=== PATIENT | male | born 1995 | race Caucasian/White ===

== ENCOUNTER 2021-01-14 19:11 | Emergency (ER) | payer OTHER, SELFPAY ==
[2021-01-14 20:46] VITALS: BP 170/104; PULSE 113; RESP 18; TEMP 37.1; O2SAT 99; BMI 34.8
[2021-01-14 22:05] VITALS: BP 148/84; PULSE 101; RESP 18; O2SAT 97
--- NOTE | 2021-01-14 23:54 | ED.SKABFB ---
HPI - Skin/Abscess/Foreign Bdy General Chief complaint: Skin/Abscess/Foreign Body Stated complaint: Cyst Time Seen by Provider: 01/14/21 23:30 Source: patient Mode of arrival: ambulatory Limitations: no limitations History of Present Illness HPI narrative: Patient comes emergency room complaining of a cyst on the upper part of the buttocks. Patient states he noticed it yesterday, states is very painful to touch. Patient has never had this before. Related Data Previous Rx's Medication Instructions Recorded cephalexin [Keflex] 750 mg PO BID #14 cap 01/15/21 doxycycline hyclate 100 mg PO BID #14 cap 01/15/21 tramadol 50 mg PO Q8H PRN #10 tab 01/15/21 Allergies Allergy/AdvReac Type Severity Reaction Status Date / Time No Known Allergies Allergy Verified 01/14/21 20:46 Review of Systems Review of Systems: Constitutional : No Weight loss, No Fever, No Chills, No Night Sweats, No Fatigue, No Malaise ENT/Mouth : No Hearing loss, No Ear Pain, No Nasal Congestion, No Sinus Pain, No Hoarseness, No sore throat, No Rhinorrhea, No Swallowing Difficulty Eyes: No Eye Pain, No Swelling, No Redness, No Foreign Body, No Discharge, No Vision Changes Cardiovascular : No Chest Pain, No SOB, No Dyspnea on Exertion, No Orthopnea, No Edema, No Palpitations Respiratory : No Cough, No Sputum, No Wheezing, No Smoke Exposure, No Dyspnea Gastrointestinal : No Nausea, No Vomiting, No Diarrhea, No Constipation, No abdominal Pain, No Hematochezia, No Melena Genitourinary : no irregular bleeding, No Dysuria, No Urinary Frequency, No Hematuria, No Urinary Incontinence, No Urgency, No Flank Pain, No Urinary Flow Changes, No Hesitancy Musculoskeletal : No joint pain, No Myalgias, No Joint Swelling Skin : Complaining of a cyst on the top part of his buttocks Neuro : No Weakness, No Numbness, No Paresthesias, No Loss of Consciousness, No Dizziness, No Headache Psych : No Anxiety/Panic, No Depression, No SI/HI/AH/VH, No Social Issues, Heme/Lymph: No Bruising, No Bleeding,No Lymphadenopathy Endocrine : No Polyuria, No Polydipsia, No Temperature Intolerance PMFSH Past Medical History Medical History HTN (hypertension) Social History Social History Smoking Status: Never smoker Use of substances other than those prescribed or required for medical reasons: Yes Advance Directives: No Physical Exam Vital Signs: Vital Signs: Last Vital Signs Temp 98.7 F 01/14/21 20:46 Pulse 97 01/15/21 00:00 Resp 16 01/15/21 00:00 BP 153/87 H 01/15/21 00:00 Pulse Ox 97 01/15/21 00:00 Body Mass Index 34.8 Appearance: Alert. Oriented X3. No acute distress. Eyes: Pupils equal, round and reactive to light. ENT: Pharynx normal. Neck: Normal inspection. Neck supple. No lymph nodes noted. No crepitus CVS: Normal heart rate and rhythm. Pulses normal. Normal S1 and S2 Respiratory: No respiratory distress. Breath sounds normal. No Wheezing. No rales Abdomen: Soft and nontender. No rigidity. No distention. good BS x4 Skin: Skin warm and dry. Normal skin color. Normal skin turgor. Patient has a pilonidal cyst, bedside ultrasound shows a depth of approximately 3 cm Extremities: No lower extremity edema. No lower extremity edema. No Lacerations. No Rash Neuro: Oriented X 3. No motor deficit. No sensory deficit. Moving all extermities. No slurred speech. Course Course Course Narrative: States the pilonidal cyst was drained, patient tolerated well the procedure. I discussed with the patient he needs to return to the emergency room for wound tracking couple of days. Patient may or may not need repacking. Procedures Abscess I/D Site: back (Lower back, pilonidal cyst) Local Anesthetic: lidocaine 1% and with epi Technique: incised with blade Amount of fluid expressed (mL): 30 Sent for culture/gram staining?: No Irrigation: Yes Packing used?: iodoform Discharge Plan Discharge Clinical Impression: Cyst, pilonidal, with abscess Patient Disposition: Home, Self-Care Instructions: Pilonidal Cyst (ED) Additional Instructions: Please return in 48 hours for wound check. If he develops any fever, any new symptoms, please return to the emergency room. Prescriptions: New tramadol 50 mg tablet 50 mg PO Q8H PRN (Reason: pain) Qty: 10 RF: 0 cephalexin [Keflex] 750 mg capsule 750 mg PO BID Qty: 14 RF: 0 doxycycline hyclate 100 mg capsule 100 mg PO BID Qty: 14 RF: 0
[2021-01-14] MEDS: Lidocaine HCl 1%/Epi 1:100,000 20 ML VIAL INFILTRATI (23:55)
[2021-01-15] VITALS: BP 153/87; PULSE 97; RESP 16; O2SAT 97
[2021-01-15] MEDS: oxyCODONE HCl Immed Release 5 MG TABLET PO (00:46)
== END 2021-01-15 01:14 | disposition home or self-care (01) ==
PROVIDERS: Emergency Provider Emergency Medicine
DX: L05.91 Pilonidal cyst without abscess (principal); M54.5 Low back pain; I10 Essential (primary) hypertension
CPT/HCPCS: 10080; 99284

== ENCOUNTER 2021-01-16 09:38 | Emergency (ER) | payer OTHER, SELFPAY ==
[2021-01-16 09:39] VITALS: BP 158/106; PULSE 105; RESP 18; TEMP 36.8; O2SAT 98; BMI 31.4
--- NOTE | 2021-01-16 10:13 | ED_ITS ---
HPI - Wound/Laceration General Chief Complaint: Wound/Laceration Stated Complaint: wound check Time Seen by Provider: 01/16/21 10:01 Source: patient Mode of arrival: ambulatory History of Present Illness HPI narrative: 25-year-old male with a past medical history of hypertension, pilonidal cyst s/p I&D on 01/14 in the ED to the ED for abscess check/packing removal. Reports overall improvement in symptoms with mild residual pain and slight residual drainage. Reports compliance with doxycycline and Keflex. Reports mild adjacent area of erythema/pain noted yesterday. Denies fever, chills Onset (ago): day(s) Related Data Previous Rx's Medication Instructions Recorded cephalexin [Keflex] 750 mg PO BID #14 cap 01/15/21 doxycycline hyclate 100 mg PO BID #14 cap 01/15/21 tramadol 50 mg PO Q8H PRN #10 tab 01/15/21 Allergies Allergy/AdvReac Type Severity Reaction Status Date / Time No Known Allergies Allergy Verified 01/14/21 20:46 Review of Systems Review of Systems: Constitutional: No Weight loss, No Fever, No Chills Gastrointestinal: No Abdominal pain Skin: + Skin Lesions, No rash Yes all other systems are reviewed and are negative PMFSH Past Medical History Attestation statement: The following information was validated with the patient. Medical History HTN (hypertension) Social History Social History Smoking Status: Never smoker Smoked in Last 30 Days: No Use of substances other than those prescribed or required for medical reasons: No Advance Directives: Yes Advance Directives Information Provided: Yes Advance Directives on File: No Physical Exam Vital Signs: Vital Signs: Last Vital Signs Temp 98.2 F 01/16/21 09:39 Pulse 105 H 01/16/21 09:39 Resp 18 01/16/21 09:39 BP 158/106 H 01/16/21 09:39 Pulse Ox 98 01/16/21 09:39 Body Mass Index 31.4 Const: General: cooperative, healthy appearing, comfortable and no acute distress Orientation/consciousness: patient oriented x3 Limitations: no limitations HENMT: Head: Yes normal to inspection Ears: hearing grossly normal bilaterally General nose exam: Normal external nose present Face and sinus: Yes normal facial exam Eyes: General: appearance normal, both eyes and all related structures EOM: EOMs intact bilaterally Neck: Neck: Yes normal visual inspection and Yes no meningeal signs Resp: Effort & Inspection: normal respiratory effort Cardio: Rate: regular rate : Other: Pilonidal cyst present with packing in place. No surrounding cellulitis. No fluctuance. Packing removed. New indurated abscess noted to left buttock with surrounding cellulitis. No fluctuance. No appreciable rectal involvement/tracking Skin: Rashes: no rashes Neuro: General: patient oriented x3 and no meningeal signs Gait exam (Neuro): Normal gait present Extrem: General: Yes normal to inspection MDM - Wound/Laceration MDM Narrative Medical decision making narrative: 25-year-old male with a past medical history of hypertension, pilonidal cyst s/p I&D on 01/14 in the ED to the ED for abscess check/packing removal. On exam mildly hypertensive/tachycardic likely from pain, physical exam as above. New indurated abscess with surrounding cellulitis noted not drainable at this time. Low concern for severe sepsis. Patient currently on proper antibiotic treatment, discussed strict follow-up in 2 days in worrisome signs and symptoms. Packing removed from pilonidal cyst. He erick carlin understanding feel safe for discharge home Medical Records Attestation: I reviewed the patient's medical records. Discharge Plan Discharge Clinical Impression: Abscess, Wound check, abscess Patient Disposition: Home, Self-Care Instructions: Abscess Follow-up (ED) Additional Instructions: The abscess that was drained in the ED few days ago looks good, however you have a new infection. Practice warm bath soaks at home. Continue taking previously prescribed antibiotics You need to be re-evaluated in 2 days If area worsens, spreads, you have fever, comes to a pimple head, has any drainage return to the ED sooner Prescriptions: No Action tramadol 50 mg tablet 50 mg PO Q8H PRN (Reason: pain) Qty: 10 RF: 0 cephalexin [Keflex] 750 mg capsule 750 mg PO BID Qty: 14 RF: 0 doxycycline hyclate 100 mg capsule 100 mg PO BID Qty: 14 RF: 0 Referrals: ED Physician,Generic [Physician] - 2 days Stand Alone Forms: Work/School Release
== END 2021-01-16 10:25 | disposition home or self-care (01) ==
PROVIDERS: Emergency Provider Emergency Medicine
DX: L05.91 Pilonidal cyst without abscess (principal); Z48.00 Encounter for change or removal of nonsurgical wound dressing; Z79.899 Other long term (current) drug therapy
CPT/HCPCS: 99283

== ENCOUNTER 2021-05-19 09:01 | Emergency (ER) | payer OTHER, SELFPAY ==
[2021-05-19 09:04] VITALS: BP 156/85; PULSE 111; RESP 18; TEMP 36.8; O2SAT 100; BMI 30.7
[2021-05-19 09:11] VITALS: BP 150/99; PULSE 113; RESP 17; TEMP 36.9; O2SAT 96
[2021-05-19] MEDS: Lidocaine HCl 1 % MPF 5 ML VIAL SUBCUT ×2 (09:34)
--- NOTE | 2021-05-19 10:12 | ED.SKABFB ---
HPI - Skin/Abscess/Foreign Bdy General Chief complaint: Skin/Abscess/Foreign Body Stated complaint: cyst on tailbone Time Seen by Provider: 05/19/21 09:23 History of Present Illness HPI narrative: patient complains of red painful swelling same as prior pilonidal abscess for the past 2 days no fever no other complaints Related Data Previous Rx's Medication Instructions Recorded cephalexin [Keflex] 750 mg PO BID #14 cap 01/15/21 doxycycline hyclate 100 mg PO BID #14 cap 01/15/21 tramadol 50 mg PO Q8H PRN #10 tab 01/15/21 ibuprofen 600 mg PO Q6H PRN #20 tab 05/19/21 sulfamethoxazole-trimethoprim 1 tab PO BID 7 Days #14 tab 05/19/21 [Bactrim DS] Allergies Allergy/AdvReac Type Severity Reaction Status Date / Time No Known Allergies Allergy Verified 01/14/21 20:46 Review of Systems Review of Systems: positive for pilonidal abscess Negatives are no fever no chills no dizziness no weakness no headache no neck pain no chest pain no cough no abdominal pain no nausea vomiting or diarrhea no dysuria Yes all other systems are reviewed and are negative PMFSH Past Medical History Source: nursing notes reviewed Medical History HTN (hypertension) Social History Social History Patient Tobacco Use Status: Never used Tobacco Use of substances other than those prescribed or required for medical reasons: No Advance Directives: Yes Advance Directives Information Provided: Yes Advance Directives on File: No Physical Exam Vital Signs: Vital Signs: Last Vital Signs Temp 98.5 F 05/19/21 09:11 Pulse 113 H 05/19/21 09:11 Resp 17 05/19/21 09:11 BP 150/99 H 05/19/21 09:11 Pulse Ox 96 05/19/21 09:11 Body Mass Index 30.7 general appearance is no distress The head is normocephalic atraumatic Neck is supple Respiratory no distress Abdomen soft nontender Skin exam at the gluteal cleft there is a new area of redness fluctuance and tenderness with no other surrounding erythema Extremities full range of motion x4 Course Course Course Narrative: procedure note for pilonidal abscess Anesthesia is 12 cc of 1% lidocaine 1 cm incision is made with discharge of copious pus Loculations are probed with forceps and more pus was drained Packing was placed and dressing was placed Discharge Plan Discharge Clinical Impression: Pilonidal abscess Patient Disposition: Home, Self-Care Additional Instructions: return to ER in 2 days for packing removal and wound check Return any time for worse pain swelling, spreading redness, fever, any worse condition or any concerns Because this is happen twice in a few months you may need to follow-up with a surgeon for a more complicatedprocedure that can eliminate the possibility of future abscesses Prescriptions: New sulfamethoxazole-trimethoprim [Bactrim DS] 800-160 mg tablet 1 tab PO BID 7 Days Qty: 14 RF: 0 ibuprofen 600 mg tablet 600 mg PO Q6H PRN (Reason: pain) Qty: 20 RF: 0 No Action tramadol 50 mg tablet 50 mg PO Q8H PRN (Reason: pain) Qty: 10 RF: 0 cephalexin [Keflex] 750 mg capsule 750 mg PO BID Qty: 14 RF: 0 doxycycline hyclate 100 mg capsule 100 mg PO BID Qty: 14 RF: 0 Referrals: Perfecto Ortega MD [Physician] - 2 days ( repeated pilonidal abscess)
== END 2021-05-19 10:25 | disposition home or self-care (01) ==
PROVIDERS: Emergency Provider Emergency Medicine
DX: L05.01 Pilonidal cyst with abscess (principal); I10 Essential (primary) hypertension
CPT/HCPCS: 10080; 99284

== ENCOUNTER 2023-12-14 19:47 | Emergency (ER) | payer OTHER, SELFPAY ==
--- NOTE | ~2023-12-14 | XR_ITS ---
EXAMINATION: XR RIBS, LEFT WITH PA CHEST CLINICAL INFORMATION: Posterior right rib pain. COMPARISON: None available. TECHNIQUE: 3 views of the left ribs were obtained, together with a PA view of the chest. FINDINGS: Lungs are clear. No consolidation, pneumothorax, or pleural effusion. The cardiomediastinal silhouette and pulmonary vasculature are normal. Osseous structures are unremarkable. Ribs are intact. No fractures are identified. XR/XR ribs LT min 3V w CXR1V IMPRESSION: Unremarkable examination.
--- NOTE | ~2023-12-14 | XR_ITS ---
EXAMINATION: XR FOREARM, RIGHT CLINICAL INFORMATION: Pain. COMPARISON: None available. TECHNIQUE: AP and lateral views of the right forearm were obtained. FINDINGS: The bones and soft tissues are normal. No fracture. Imaged portions of the elbow and wrist are unremarkable. XR/XR forearm RT 2V IMPRESSION: Normal right forearm.
--- NOTE | ~2023-12-14 | XR_ITS ---
EXAMINATION: XR ELBOW, RIGHT CLINICAL INFORMATION: Pain. COMPARISON: None available. TECHNIQUE: AP, lateral, and oblique views of the right elbow. FINDINGS: The bones and soft tissues are normal. No fracture or joint effusion. Alignment is anatomic. Joint spaces are maintained. XR/XR elbow RT 2V IMPRESSION: Normal right elbow.
--- NOTE | ~2023-12-14 | XR_ITS ---
EXAMINATION: XR HUMERUS, LEFT CLINICAL INFORMATION: Left upper arm pain. COMPARISON: None available. TECHNIQUE: AP and lateral views of the left humerus. FINDINGS: The bones and soft tissues are normal. No fracture. Imaged portions of the shoulder and elbow are unremarkable. XR/XR humerus LT IMPRESSION: Normal left humerus.
[2023-12-14 20:17] VITALS: BP 158/109; PULSE 106; RESP 16; TEMP 36.6; O2SAT 98; BMI 38.8
--- NOTE | 2023-12-14 20:19 | ED.FALL ---
HPI - Fall General Chief Complaint: Fall Stated Complaint: fell down stairs ,bilateral elbow pain Time Seen by Provider: 12/14/23 23:33 Source: patient Mode of arrival: ambulatory History of Present Illness HPI Narrative: 28M fell down icy steps without head strike but has pain at medial/lateral aspect of right elbow. Denies LOC. Related Data Previous Rx's Medication Instructions Recorded cephalexin 750 mg capsule (Keflex) 750 mg PO BID #14 caps 01/15/21 doxycycline hyclate 100 mg capsule 100 mg PO BID #14 caps 01/15/21 tramadol 50 mg tablet 50 mg PO Q8H PRN pain #10 tabs 01/15/21 ibuprofen 600 mg tablet 600 mg PO Q6H PRN pain #20 tabs 05/19/21 sulfamethoxazole 800 1 tab PO BID 7 days #14 tabs 05/19/21 mg-trimethoprim 160 mg tablet (Bactrim DS) Allergies Allergy/AdvReac Type Severity Reaction Status Date / Time No Known Allergies Allergy Verified 01/14/21 20:46 Review of Systems Review of Systems: Pertinent positives and negatives as stated in HPI PMFSH Past Medical History Source: nursing notes reviewed Medical History HTN (hypertension) Social History Social History Patient Tobacco Use Status: Never used Tobacco Advance Directives: No Advance Directives Information Provided: No Physical Exam Vital Signs: Vital Signs: Last Vital Signs Temp 97.9 F 12/14/23 20:17 Pulse 106 H 12/14/23 20:17 Resp 16 12/14/23 20:17 BP 158/109 H 12/14/23 20:17 Pulse Ox 98 12/14/23 20:17 O2 Del Method Room Air 12/14/23 20:17 BMI result Body Mass Index 38.8 VITAL SIGNS: Reviewed. GENERAL: Well developed, well nourished, in no acute distress. HEAD: Normocephalic/atraumatic EYES: PERRLA, EOMI EARS: Ext canals without abnormality NOSE: Nares patent bilateral OROPHARYNX: no oral lesions noted, posterior pharynx clear NECK: Supple, no adenopathy, no midline cervical spine tenderness to palpation or step-offs. LUNGS: Normal breath sounds. No adventitious sounds or accessory muscle use. SpO2<98> CARDIOVASCULAR: Regular rate and rhythm without noted murmurs ABDOMEN: Soft, non-tender, non-distended with bowel sounds. MUSCULOSKELETAL: No tenderness, deformities, or effusions noted on gross inspection. EXTREMITIES: No cyanosis, clubbing or edema. LUE: Contusion to posterior medial aspect of upper arm RUE: no obvious deformity, fROM at all joints, neurovasc intact SKIN: Inspection of the skin reveals no rashes NEUROLOGIC: Alert and oriented x 4. Strength and sensation to light touch were grossly intact x 4. Course Course Course Narrative: RME:?28 yo male here with upper extremity pain after falling down 12 stairs outside his house 3 days ago. Reports slipping on ice, landing on his buttocks/low back and sliding all the way down the stairs. Denies head strike or LOC. Not on AC. Additionally admits that he tried to grab onto the railing with his right arm and feels as though he pulled a muscle in his right forearm. Endorses bruising to the tricep area of the left arm. Additionally reports pain/aching to the posterior left rib area. Was immediately able to stand and ambulate after fall. Denies any confusion, headache, dizziness, nausea since fall. Denies any abdominal bruising, back pain, neck pain. X-rays ordered. Full HPI, ROS and PE to be performed by the primary ED provider. Medical Decision Making Medical Decision Making MDM Narrative: 28-year-old male with history and clinical presentation most consistent for muscle strain, I reviewed all imaging studies that do not demonstrate any fractures or dislocations and no concern for biceps injury. Patient recommended to continue with Tylenol and ibuprofen follow-up with his primary care doctor. Differential Diagnosis Differential Diagnoses: The differential diagnosis associated with the presentation includes Please see the discussion above Admission/Observation Consideration of admission/observation: Escalation of care including admission/observation considered Please see the discussion above Radiology Impression Discussion of test interpretation with radiology: I have reviewed the radiologist's reading. Radiologist Impression: Please see the discussion above External Record Review External record reviewed: Outpatient record and Prior outpatient labs Discharge Plan Discharge Clinical Impression: Fall, Muscle strain Patient Disposition: Home, Self-Care Instructions: Muscle Strain (ED), Fall Prevention (ED) Additional Instructions: 1. Recommend continued use of Tylenol/ibuprofen as needed for pain control. 2. Recommend follow-up with your primary care doctor in the event that you need a referral for physical therapy or any further imaging. Return to the ER for any worsening symptoms. Prescriptions: No Action tramadol 50 mg tablet 50 mg PO Q8H PRN (Reason: pain) Qty: 10 0RF cephalexin [Keflex] 750 mg capsule 750 mg PO BID Qty: 14 0RF doxycycline hyclate 100 mg capsule 100 mg PO BID Qty: 14 0RF sulfamethoxazole-trimethoprim [Bactrim DS] 800-160 mg tablet 1 tab PO BID 7 Days Qty: 14 0RF ibuprofen 600 mg tablet 600 mg PO Q6H PRN (Reason: pain) Qty: 20 0RF
== END 2023-12-15 00:03 | disposition home or self-care (01) ==
PROVIDERS: Emergency Provider Student in an Organized Health Care Education/Training Program
DX: S46.811A Strain of other muscles, fascia and tendons at shoulder and upper arm level, right arm, initial encounter (principal); S39.92XA Unspecified injury of lower back, initial encounter; W00.1XXA Fall from stairs and steps due to ice and snow, initial encounter; Y93.89 Activity, other specified; Y92.9 Unspecified place or not applicable; Y99.9 Unspecified external cause status; M25.521 Pain in right elbow; R07.81 Pleurodynia; M79.602 Pain in left arm
CPT/HCPCS: 71101; 73060; 73070; 73090; 99282; 99283

== ENCOUNTER 2025-05-16 20:52 | Emergency (ER) | payer OTHER, SELFPAY ==
[2025-05-16 21:02] VITALS: BP 157/98; PULSE 91; RESP 18; TEMP 36.1; O2SAT 99; BMI 37.0
[2025-05-16 21:29] LABS: MANUAL DIFF FLAG NO
[2025-05-16 21:31] LABS: Hematocrit 39.8 % (42.0-52.0); Hemoglobin 14.1 g/dl (14.0-18.0); Imm Gran Abs Auto 0.02 X10*3/uL (0.00-0.03); Imm Gran Pct Auto 0.2 % (0.0-0.4); Lymphocytes Absolute Auto 3.7 X10*3/uL (1.2-4.9); Mean Corpuscular HGB Conc 35.4 g/dl (31.0-36.0); Mean Corpuscular Hemoglobin 29.4 pg (27.0-33.0); Mean Corpuscular Volume 83.1 fL (80.0-98.0); NRBC Abs Auto 0.000 X10*3/uL (0.0-0.012); NRBC Pct Auto 0.0 /100WBC (0.0-0.2); Platelet Count 267 X10*3/uL (160-400); Red Blood Count 4.79 X10*6/uL (4.60-5.80); White Blood Count 9.0 X10*3/uL (4.8-10.8)
[2025-05-16 21:43] LABS: Alanine Aminotransferase 78 U/L (0-40); Albumin Level 4.7 g/dL (3.5-5.0); Alkaline Phosphatase 49 U/L (39-117); Anion Gap 14 (12-20); Aspartate Amino Transferase 46 U/L (5-37); Blood Urea Nitrogen 14 mg/dL (9-16); Calcium 9.0 mg/dL (8.4-10.2); Carbon Dioxide 28 mmol/L (22-29); Chloride 103 mmol/L (96-108); Creatinine Clr Calc Pharmacy 115.9; Estimated Glomerular Filt Rate > 60; Potassium 3.6 mmol/L (3.3-5.1); Sodium 141 mmol/L (135-145); Total Protein 7.8 g/dL (6.5-8.0)
[2025-05-16 21:45] VITALS: BP 146/65; PULSE 88; RESP 16; TEMP 36.8; O2SAT 99
[2025-05-16 22:07] LABS: Resp Syncy Virus RNA Qual PCR NEGATIVE (Negative); SARS COV2 PCR INHOUSE NEGATIVE (Negative)
--- NOTE | 2025-05-16 23:08 | ED.GENADULT ---
HPI - General Adult General Chief complaint: General Medical Stated complaint: sinus infection? Time Seen by Provider: 05/16/25 22:42 Source: patient Mode of arrival: ambulatory Limitations: no limitations History of Present Illness ED Provider: HPI narrative: Patient has chronic allergies been having sinus congestion for last 4 weeks getting worse for last few days today patient was in [employer] and sudden noticed that he could not see from the right eye lasted only for few sec back to normal now no fever no chills no headache no history of migraine Related Data Previous Rx's ?Medication ?Instructions ?Recorded cephalexin 750 mg capsule (Keflex) 750 mg PO BID #14 caps 01/15/21 doxycycline hyclate 100 mg capsule 100 mg PO BID #14 caps 01/15/21 tramadol 50 mg tablet 50 mg PO Q8H PRN pain #10 tabs 01/15/21 ibuprofen 600 mg tablet 600 mg PO Q6H PRN pain #20 tabs 05/19/21 sulfamethoxazole 800 1 tab PO BID 7 days #14 tabs 05/19/21 mg-trimethoprim 160 mg tablet (Bactrim DS) amoxicillin 875 mg-potassium 1 tab PO BID #20 tabs 05/16/25 clavulanate 125 mg tablet Allergies Allergy/AdvReac Type Severity Reaction Status Date / Time No Known Allergies Allergy Verified 05/16/25 21:07 Review of Systems Review of Systems: Yes all other systems are reviewed and are negative PMFSH Past Medical History Medical History HTN (hypertension) Social History Social History Patient Tobacco Use Status: Never used Tobacco Smoked in Last 30 Days: No Use of substances other than those prescribed or required for medical reasons: No Advance Directives: No Advance Directives Information Provided: No Do you have a plan to hurt others: No Plan Physical Exam ED Vital Signs: Vital Signs - 24 hr 05/16/25 21:02 05/16/25 21:45 Temperature 97.0 F 98.3 F Pulse Rate 91 88 Respiratory Rate 18 16 Blood Pressure 157/98 H 146/65 H Pulse Oximetry 99 99 Oxygen Delivery Method Room Air Room Air BMI result Body Mass Index 37.0 Appearance: Alert. Oriented X3. No acute distress. Eyes: PERRLA, No Nystagmus benign fundus visual acuity and visual curiel are normal ENT: Pharynx normal. Oral Mucosa moist inflamed nasal turbinate Neck: Normal inspection. Neck supple. CVS: Normal heart rate and rhythm. Pulses normal. Respiratory: No respiratory distress. Equal air entry bilateral, no wheezing/rales/rhonchi Abdomen: Soft and nontender. Bowel sounds are present, no mass palpable, Skin: Skin warm and dry. Normal skin color. Normal skin turgor. Extremities: No lower extremity edema. No calf tenderness Neuro: Oriented X 3. No motor deficit. Medical Decision Making Medical Decision Making [facility] Narrative: Patient's transient vision loss of vision on right eye likely amaurosis fugax patient is back to normal fundus normal visual curiel normal also does have sinus and bronchitis will prescribe antibiotics Lab Data [facility] Lab Attestation statement: I reviewed the patient's lab results. 05/16/25 21:24 05/16/25 21:24 Labs: Lab Results 05/16/25 Range/Units 21:24 WBC 9.0 (4.8-10.8) X10*3/uL RBC 4.79 (4.60-5.80) X10*6/uL Hgb 14.1 (14.0-18.0) g/dl Hct 39.8 L (42.0-52.0) % MCV 83.1 (80.0-98.0) fL MCH 29.4 (27.0-33.0) pg MCHC 35.4 (31.0-36.0) g/dl RDW 12.8 (11.0-16.0) % Plt Count 267 (160-400) X10*3/uL MPV 10.6 (9.4-12.4) fL Immature Gran % (Auto) 0.2 (0.0-0.4) % Neut % (Auto) 46.1 (45-73) % Lymph % (Auto) 41.3 H (20-40) % [place] % (Auto) 7.6 (2-11) % Eos % (Auto) 3.8 (0-4) % Baso % (Auto) 1.0 (0-2) % Lymph # (Auto) 3.7 (1.2-4.9) X10*3/uL [place] # (Auto) 0.7 (0.1-1.2) X10*3/uL Eos # (Auto) 0.3 (0.0-0.4) X10*3/uL Baso # (Auto) 0.1 (0.0-0.2) X10*3/uL Abs Immat Gran (auto) 0.02 (0.00-0.03) X10*3/uL Absolute Neuts (auto) 4.2 (2.0-8.3) x10*3/uL Absolute Nucleated RBC 0.000 (0.0-0.012) X10*3/uL Nucleated RBC % (auto) 0.0 (0.0-0.2) /100WBC Sodium 141 (135-145) mmol/L Potassium 3.6 (3.3-5.1) mmol/L Chloride 103 (96-108) mmol/L Carbon Dioxide 28 (22-29) mmol/L Anion Gap 14 (12-20) BUN 14 (9-16) mg/dL Creatinine 1.24 (0.5-1.4) mg/dL Estim Creat Clear Calc 115.9 Estimated GFR > 60 Random Glucose 91 (60-115) mg/dL Calcium 9.0 (8.4-10.2) mg/dL Total Bilirubin 0.6 (0.0-1.0) mg/dL AST 46 H (5-37) U/L ALT 78 H (0-40) U/L Alkaline Phosphatase 49 (39-117) U/L Total Protein 7.8 (6.5-8.0) g/dL Albumin 4.7 (3.5-5.0) g/dL Influenza Type A (PCR) NEGATIVE (Negative) Influenza Type B (PCR) NEGATIVE (Negative) RSV RNA Qual (PCR) NEGATIVE (Negative) SARS-CoV-2 RNA (RT-PCR) NEGATIVE (Negative) Discharge Plan Discharge Clinical Impression: Acute bacterial sinusitis Patient Disposition: Home, Self-Care Instructions: Rhinosinusitis (ED) Additional Instructions: Take antibiotic as prescribed Drink plenty of fluids Prescriptions: New amoxicillin-pot clavulanate 875-125 mg tablet 1 tab PO BID Qty: 20 0RF No Action tramadol 50 mg tablet 50 mg PO Q8H PRN (Reason: pain) Qty: 10 0RF cephalexin [Keflex] 750 mg capsule 750 mg PO BID Qty: 14 0RF doxycycline hyclate 100 mg capsule 100 mg PO BID Qty: 14 0RF sulfamethoxazole-trimethoprim [Bactrim DS] 800-160 mg tablet 1 tab PO BID 7 Days Qty: 14 0RF ibuprofen 600 mg tablet 600 mg PO Q6H PRN (Reason: pain) Qty: 20 0RF Print Language: Vietnamese
[2025-05-16 23:25] VITALS: BP 183/91; PULSE 86; RESP 18; TEMP 36.8; O2SAT 97
== END 2025-05-16 23:26 | disposition home or self-care (01) ==
PROVIDERS: Emergency Provider Internal Medicine
DX: J01.80 Other acute sinusitis (principal); B96.89 Other specified bacterial agents as the cause of diseases classified elsewhere; J40 Bronchitis, not specified as acute or chronic; H53.121 Transient visual loss, right eye; I10 Essential (primary) hypertension; Z03.818 Encounter for observation for suspected exposure to other biological agents ruled out; Z79.899 Other long term (current) drug therapy
CPT/HCPCS: 36415; 80053; 85025; 87637; 99283; 99284

== ENCOUNTER 2025-05-20 19:51 | Emergency (ER) | payer OTHER, SELFPAY ==
--- OUTSIDE RECORDS SUMMARY | 2025-05-16 09:12 | XMS_ITS | Encounter Summary ---
Author Name [facility] Address [address] [place] [address] Care Team Providers Care Wool Shearer Name Role Phone YON SILVESTRE Primary Care Provider Jess ble Selected Encounter This section includes the information on record at [place] for the Encounter. Date/Time Encounter Type Encounter Description Reason Pro vider Source May 16, 2025 01:12 PM Outpatient Encounter TELEPHONE TRIAGE I[facility] Encounter Template Text not used by [place] Plan of Treatment: Future Appointments (+ 6 months) and Future Tests (+/- 45 days) The Plan of Treatment section includes future care activities for the patient from all [place] treatmentfacilities. This section includes future appointments and future orders which are active, pending or scheduled. Future Appointments This section includes appointments that were scheduled to occur 6 months from the date of the Encounter, up to a maximum of 20 appointments. The data comes from all [place] treatment facilities. Appointment Date/Time Appointment Type Appointme nt Facility Name May 17, 2025 01:30 PM AMBULATORY - MEDICINE [facility] Active, Pending, and Scheduled Orders This section includes a listing of several types of active, pending, and scheduled orders, including clinic medications orders, diagnostic test orders, procedure orders and consult orders; where the start date of the order is 45 days before the date of the Encounter or 45 days after the date of theEncounter. The data comes from all [place] treatment facilities. Test Date/Time Test Type Test Details Facility Name May 17, 2025 12:00 AM Laboratory - Chemi stry Order CBC W/ AUTO DIFF BLOOD (WB LAV) [facility] May 17, 2025 12:00 AM Laboratory - Chemi stry Order CHEM 7 BLOOD (SER GOLD) [facility] May 17, 2025 12:00 AM Laboratory - Chemi stry Order LIVER PROFILE BLOOD (SER GOLD) [facility] May 17, 2025 12:00 AM Laboratory - Chemi stry Order LIPOPROTEIN PROFILE BLOOD (SER GOLD) [facility] May 17, 2025 12:00 AM Laboratory - Chemi stry Order HEMOGLOBIN A1C PANEL BLOOD (WB LAV) [facility] Encounter Notes: All associated encounter notes This section contains the clinical notes associated to the Encounter. Date/Time Encounter Note(s) Provider Source May 16, 2025 01:12 PM RN PROGRESS NOTE: LOCAL TITLE: [facility]3]: CLINICAL TRIAGE STANDARD TITLE: RN PROGRESS NOTE DATE OF NOTE: MAY 16, 2025@13:12:11 ENTRY DATE: MAY 16, 2025@13:12:12 AUTHOR: ALBAN BOJORQUEZ COSIGNER: URGENCY: STATUS: COMPLETED Caller Verification Current Location: [address] [place] [address] Call Back Number: [phone] Caller/Recipient Relation to Patient: Self Caller Name: JAMES NOVAK [facility] Triage Summary Conducted triage/discussed symptoms Pain Score: 0 (No Pain) Utilized the Triage Tool: Yes Chief Complaint: Nasal Allergies (Hay Fever) Nurse's Recommendation / WHEN: Within 3 Days Nurse's Recommendation / WHERE: Virtual Video Visit Nurse's Other / WHERE: [facility]3] HUMAN RESOURCES BENEFITS ASSISTANT Patient Disposition Patient/Caregiver agrees to plan of care: Yes Patient WHERE: Virtual Video Visit Other - Patient Where Disposition: [facility] community outreach advocate Patient WHEN: Within 3 days Nursing Plan and Disposition Referred for [facility]3] Virtual Clinic Visit Transferred patient to [facility] Nurse Summary Nurse Summary: The recommendation is that you be seen within 72 hrs with the [facility]3] HUMAN RESOURCES BENEFITS ASSISTANT. If your sx persist, worsen, or if you develop new sx, please call us back. The [facility]3] staff is available 08/06 or seek . Clinical Contact Center Codes Clinic/Location: [place] PHONE [facility] RN Decision Support System Output: Triage Complete Triage Date: 05/16/2025, 01:08 PM Triage Note: Decision Support Tool Used: ClearTriage The vet reports nasal congestion x 1 month. Protocol Used: Nasal Allergies (Hay Fever) Protocol-Based Disposition: See Provider within 3 Days Video visit offered and caller accepted Positive Triage Question: * [1] Taking antihistamines or using nasal steroids > 7 days AND [2] nasal allergy symptoms not getting better (not improving) Negative Triage Questions: * Patient sounds very sick or weak to the triager * Lots of coughing * [1] Taking antihistamines or using nasal steroids > 2 days AND [2] nasal allergy symptoms interfere with sleep, school, or work * [1] Nasal discharge AND [2] present > 10 days * [1] Sinus congestion (pressure, fullness) AND [2] present > 10 days IMPORTANT: This note was created by [facility] Clinical Contact Center staff. Please do not alert the staff member by adding them as a signer for future communications. Alerts are not monitored by this user. /mor/ ALBAN BOJORQUEZ RN, MSN Signed: 05/16/2025 13:12 Receipt Acknowledged By: 05/16/2025 13:49 /mor/ RL DOMINGUEZN, RN REGISTERED NURSE 05/16/2025 13:56 /mor/ TANA ARREOLA LPN LICENSED PRACTICAL NURSE ALBAN BOJORQUEZ [facility]
--- NOTE | ~2025-05-20 | CT_ITS ---
CLINICAL HISTORY: Amaurosis Fugax R side, vision changes CT head without contrast Comparison: None provided. Findings: No intracranial mass, midline shift, hydrocephalus, or acute hemorrhage. Visualized paranasal sinuses and mastoid air cells appear clear. No acute skull fracture. The orbits are unremarkable in appearance. Impression: 1. No acute intracranial abnormality. No acute intracranial hemorrhage. CT angiography head and neck with contrast. 3-D postprocessing Comparison: None provided. Findings: This examination is limited by motion and suboptimal contrast opacification of the arterial vasculature. The bilateral common carotid arteries and cervical portions of the internal carotid arteries appear patent without hemodynamically significant stenosis. The vertebral arteries appear patent bilaterally at the level of the neck. No clear carotid or vertebral dissection is seen given the exam limitations. No focal consolidation or effusion identified within the visualized portions of the bilateral lung apices. The intracranial vertebrobasilar system appears patent. Cerebellar and posterior cerebral arteries are intact. Intracranial internal carotid arteries appear patent. Middle/anterior cerebral arteries also appear patent. No aneurysms or abrupt cutoffs visualized. Impression: 1. Mildly limited CT angiography examination of the neck related to motion and suboptimal contrast opacification of the vasculature. The bilateral carotid and vertebral arterial systems appear to be patent at the level of the neck without identification of focal luminal stenosis. 2. Patent anterior and posterior intracranial arterial circulation. No large vessel occlusion. This document has been electronically signed by: Joseph Martin MD on 05/20/2025 22:06:48
--- NOTE | 2025-05-20 19:53 | ED_ITS ---
HPI - General Adult General Chief complaint: General Medical Stated complaint: ? sinus infection Time Seen by Provider: 05/20/25 21:18 History of Present Illness ED Provider: Santhosh RESENDIZ narrative: The patient is a 29-year-old male with a history of hypertension. He says he is otherwise fairly healthy. For the last 3 weeks he has had a lot of trouble with nasal stuffiness. He has been sniffling a great deal. Despite this he has not had any nasal discharge. 4 days ago on May 16 the he was at [employer] doing some shopping. He had a very intense sniffle and he says that he lost vision in his right eye for a couple of sec. He found this very a nursing and he had his drive him to the emergency room here. He had no headache or other symptoms associated at the time. At that visit he hammer he sick testing with a CBC and a CMP which were unremarkable aside from mild transaminitis and the mild lymphocytosis. He had a negative viral swab. He was diagnosed with sinusitis and placed on Augmentin. since then he feels that he continues to have unusual symptoms that include spots in his vision (both eyes), a sense of dizziness, and he has been having heartburn with postprandial vomiting. He returns to the emergency room because he continues to have these he also continues to have incessant sniffling without associated nasal discharge. He denies headache. He has some discomfort in his eyes but no real eye pain. No facial pain. No sore throat. No neck pain. No chest pain. Related Data Previous Rx's ?Medication ?Instructions ?Recorded cephalexin 750 mg capsule (Keflex) 750 mg PO BID #14 c aps 01/15/21 doxycycline hyclate 100 mg capsule 100 mg PO BID #14 c aps 01/15/21 tramadol 50 mg tablet 50 mg PO Q8H PRN pain #10 ta bs 01/15/21 ibuprofen 600 mg tablet 600 mg PO Q6H PRN pain #20 t abs 05/19/21 sulfamethoxazole 800 1 tab PO BID 7 days #14 tabs 05/19/21 mg-trimethoprim 160 mg tablet (Bactrim DS) amoxicillin 875 mg-potassium 1 tab PO BID #20 tabs 12/10 clavulanate 125 mg tablet fluticasone propionate 50 2 spray intranasal DAILY #16 grams 05/20/25 mcg/actuation nasal spray,suspension prochlorperazine maleate 10 mg 10 mg PO Q6H PRN nausea and 05/20/25 tablet vomiting #10 tabs Allergies Allergy/AdvReac Type Severity Reaction Status Date / Time No Known Allergies Allergy Verified 05/20/25 19:55 Review of Systems 2 Review of Systems: Yes all other systems are reviewed and are negative [facility] Past Medical History Medical History HTN (hypertension) Social History Social History Patient Tobacco Use Status: Never used Tobacco Smoked in Last 30 Days: No Use of substances other than those prescribed or required for medical reasons: No Advance Directives: No Advance Directives Information Provided: Yes Do you have a plan to hurt others: No Plan Physical Exam ED Vital Signs: Vital Signs - 24 hr 05/20/25 19:54 05/20/25 20:33 05/20/25 23:16 Temperature 97.1 F 97.3 F 98.7 F Pulse Rate 98 87 78 Respiratory Rate 20 18 15 Blood Pressure 149/93 H 162/95 H 132/78 Pulse Oximetry 99 98 99 Oxygen Delivery Method Room Air Room Air Room Air BMI result Body Mass Index 36.6 Const Other: The patient is a 29-year-old male who was awake and alert with a normal mental status. He did not appear obviously acutely ill. He does not seem uncomfortable. No obvious neurological deficits. HENMT Other: Face is symmetrical. Pharynx is normal. Mucous membranes moist. Nasal passages seem clear. No obvious edema to the nasal passages. There was no nasal discharge. The patient was very frequently sniffling as if trying to clear his nostrils. This was a very prominent feature of his exam. Eyes Other: Pupils are round, equal, and reactive to light, extraocular movements are intact. Conjunctivae are clear. Visual acuity is 20/20 in both eyes tested individually. Visual curiel are intact to confrontation. Neck Other: No cervical adenopathy. The neck is entirely supple. Resp Effort & Inspection: normal respiratory effort Auscultation: clear to auscultation bilaterally Cardio Other: No murmur Rate: regular rate Rhythm: regular rhythm Heart sounds: S1 normal heart sound present and S2 normal heart sound present Skin Other: Skin is dry and unremarkable Neuro Other: The patient is awake and alert with a normal mental status. Pupils are round, equal, and reactive to light, extraocular movements are intact, visual curiel are intact to confrontation, the patient is 20/20 in each eye. Face is symmetrical. Speech is clear. He has normal strength in his extremities. There was no pronator drift. His gait is steady. His neck is supple. He seems neurologically intact. Extrem Other: No peripheral edema Course Course Course Narrative: RME performed by Yuridia Vo PA-C. Patient is a 29 year old assigned male at presenting to the emergency department with dizziness and right sided visual changes. Patient states 4 days ago he sniffed too hard and lost all vision in his right eye - but it returned shortly after. Detailed physical exam and review of systems are deferred to the composition siding worker. EKG, labs, imaging ordered. Patient placed back in the waiting room pending room availability and results. Medications Administered Discontinued Medications Generic Name Dose Route Start Last Admin Trade Name Debbie PRN Reason Stop Dose Admin Dexamethasone Sodium Phosphate 10 mg 05/20/25 23:02 05/20/25 23:06 Dexamethasone Sod Phosphate 10 Mg/Ml Vial IVPUSH 05/20/25 23:03 10 mg ONCE ONE Administration Diphenhydramine HCl 25 mg 05/20/25 21:39 05/20/25 21:48 Diphenhydramine Hcl 50 Mg/Ml Vial IVPUSH 05/20/25 21:40 25 mg ONCE ONE Administration Famotidine 20 mg 05/20/25 21:41 05/20/25 21:48 Famotidine/Pf 20 Mg/2 Ml Vial IVPUSH 05/20/25 21:42 20 mg ONCE ONE Administration Sodium Chloride 1,000 mls @ 999 mls/hr 05/20/25 21:45 05/20/25 21:49 Ns IV 05/20/25 22:45 999 mls/hr .Q1H1M PETER Administration Iohexol 70 ml 05/20/25 21:15 05/20/25 21:24 Iohexol 350 Mg/Ml 100 Ml Infus..Btl IV 05/20/25 21:16 70 ml ONCE ONE Administration Ketorolac Tromethamine 10 mg 05/20/25 21:39 05/20/25 21:47 Ketorolac Tromethamine 15 Mg/Ml Vial IVPUSH 05/20/25 21:40 10 mg ONCE ONE Administration Metoclopramide HCl 10 mg 05/20/25 21:37 05/20/25 21:48 Metoclopramide Hcl 10 Mg/2 Ml Vial IVPUSH 05/20/25 21:38 10 mg ONCE ONE Administration Oxymetazoline HCl 2 spray 05/20/25 22:15 05/20/25 22:55 Oxymetazoline Hcl 0.05 % Nasal 15 Ml [place] NOSTRIL-B 05/20/25 22:16 2 spray ONCE ONE Administration Medical Decision Making Medical Decision Making [facility] Narrative: The patient is a 29-year-old with the an unusual constellation of symptoms. He has had 3 weeks of nasal stuffiness. He describes a near constant need to try to clear his nostrils. He does this by very frequently briskly inhaling through his nostrils. He describes an episode 4 days ago in which he inhaled very sharply and had a transient loss of vision in his right eye. He came to the emergency room immediately after that episode. He says that the vasa vision lasted a proximally 2 seconds. A presumptive diagnosis of sinusitis was made and he was put on Augmentin. He now returns because he has had some nausea and vomiting. He also describes some generalized abnormal visual phenomenon. He describes seeing spots across his visual curiel in both eyes. He has a mild eye discomfort but no eye pain. He denies having a headache. He says that he has vomited today and yesterday although he is not having acute nausea currently. He has had some photophobia. The patient is visual acuity is very good. Visual curiel are intact to confrontation. His eye exam seems benign. His neurological exam seems benign as well. The most salient aspect of his exam is frequent brisk nasal inhalations. Overall I had a sensation that possibly the patient is having some kind of migraine type phenomenon. A CT angiogram of the head and neck was ordered at triage out of concern for possible amaurosis fugax. It would be very unusual for 29-year-old to have amaurosis fugax. He does not report any family history of early vascular disease of any kind. I suspect that the event he describes in which he lost vision in his right eye for a couple of seconds was a phenomenon somehow related to the brisk inhalation he describes having done immediately before. The CT angiogram of the head and neck was unremarkable. I reviewed the images. I do not see any evidence of radiographic sinusitis. Perhaps his nasal symptoms are related to an allergic phenomenon. The patient was given treatment for possible migraine syndrome with a ketorolac, metoclopramide, and diphenhydramine. He was also given some sprays of oxymetazoline in his nostrils to try to address his nasal symptoms. Overall I thought he seemed to be feeling somewhat better. I think he may be discharged to follow up with his regular doctor through the [facility] system. Given his visual complaints he was also given the name and number of Dr. Novoa for ophthalmology follow up. He will be prescribed fluticasone an nasal spray has a nasal steroid. Prochlorperazine as needed for nausea. Lab Data 05/20/25 20:04 05/20/25 20:04 Labs: Lab Results 05/20/25 05/20/25 Range/Units 20:04 21:53 WBC 10.5 (4.8-10.8) X10*3/uL RBC 5.03 (4.60-5.80) X10*6/uL Hgb 15.0 (14.0-18.0) g/dl Hct 41.8 L (42.0-52.0) % MCV 83.1 (80.0-98.0) fL MCH 29.8 (27.0-33.0) pg MCHC 35.9 (31.0-36.0) g/dl RDW 12.8 (11.0-16.0) % Plt Count 276 (160-400) X10*3/uL MPV 10.8 (9.4-12.4) fL Immature Gran % (Auto) 0.2 (0.0-0.4) % Neut % (Auto) 47.9 (45-73) % Lymph % (Auto) 42.3 H (20-40) % [place] % (Auto) 5.9 (2-11) % Eos % (Auto) 2.8 (0-4) % Baso % (Auto) 0.9 (0-2) % Lymph # (Auto) 4.4 (1.2-4.9) X10*3/uL [place] # (Auto) 0.6 (0.1-1.2) X10*3/uL Eos # (Auto) 0.3 (0.0-0.4) X10*3/uL Baso # (Auto) 0.1 (0.0-0.2) X10*3/uL Abs Immat Gran (auto) 0.02 (0.00-0.03) X10*3/uL Absolute Neuts (auto) 5.0 (2.0-8.3) x10*3/uL Absolute Nucleated RBC 0.000 (0.0-0.012) X10*3/uL Nucleated RBC % (auto) 0.0 (0.0-0.2) /100WBC ESR 10 (0-15) MM/HR Sodium 140 (135-145) mmol/L Potassium 3.9 (3.3-5.1) mmol/L Chloride 104 (96-108) mmol/L Carbon Dioxide 27 (22-29) mmol/L Anion Gap 13 (12-20) BUN 11 (9-16) mg/dL Creatinine 1.13 (0.5-1.4) mg/dL Estim Creat Clear Calc 126.6 Estimated GFR > 60 Random Glucose 97 (60-115) mg/dL Calcium 9.2 (8.4-10.2) mg/dL Magnesium 2.5 (1.6-2.6) mg/dL Total Bilirubin 0.5 (0.0-1.0) mg/dL AST 38 H (5-37) U/L ALT 81 H (0-40) U/L Alkaline Phosphatase 53 (39-117) U/L C-Reactive Protein 0.31 (< or = 0.50) mg/dL Total Protein 8.0 (6.5-8.0) g/dL Albumin 5.0 (3.5-5.0) g/dL Influenza Type A (PCR) NEGATIVE (Negative) Influenza Type B (PCR) NEGATIVE (Negative) RSV RNA Qual (PCR) NEGATIVE (Negative) SARS-CoV-2 RNA (RT-PCR) NEGATIVE (Negative) Discharge Plan Discharge Clinical Impression: Nasal congestion, Visual symptoms, Photophobia Patient Disposition: Home, Self-Care Instructions: Ocular Migraine (ED) Additional Instructions: Your testing in the emergency room today has been very reassuring. I have some suspicion that your symptoms might be the manifestation of a migraine phenomenon even though you do not have a classic migraine headache. Migraines are capable of causing a multitude of symptoms, often without a headache. I would recommend trying the steroid nasal spray, 2 sprays in each nostril daily, to see if this helps with your nasal congestion. I do not think you need to continue the antibiotics that were previously prescribed. There was no obvious sign of sinusitis on the CAT scan. I have sent a prescription for the medication prochlorperazine which you may use if you have any ongoing nausea. Since you have had a number of different visual symptoms please contact Dr. Novoa's office to see if you can get a follow up appointment so he can check your vision. Additionally please contact your primary care doctor's office to see if you can get a follow up to discuss these unusual symptoms further as well and you can get a 2nd opinion. Return to the emergency room if significantly worse. Prescriptions: New fluticasone propionate 50 mcg/actuation spray,suspension 2 spray intranasal DAILY Qty: 16 0RF Rx Instructions: administer into each nostril prochlorperazine maleate 10 mg tablet 10 mg PO Q6H PRN (Reason: nausea and vomiting) Qty: 10 0RF No Action tramadol 50 mg tablet 50 mg PO Q8H PRN (Reason: pain) Qty: 10 0RF cephalexin [Keflex] 750 mg capsule 750 mg PO BID Qty: 14 0RF doxycycline hyclate 100 mg capsule 100 mg PO BID Qty: 14 0RF sulfamethoxazole-trimethoprim [Bactrim DS] 800-160 mg tablet 1 tab PO BID 7 Days Qty: 14 0RF ibuprofen 600 mg tablet 600 mg PO Q6H PRN (Reason: pain) Qty: 20 0RF amoxicillin-pot clavulanate 875-125 mg tablet 1 tab PO BID Qty: 20 0RF Referrals: [facility] [Provider Group] Jordin Novoa [Physician, Ophthalmology] Referral Note: variety of visual symptoms Interventions: ED Discharge Assessment Last Done: 05/20/25 23:16 Discharge Date/Time: 05/20/25 23:16 Print Language: [place]
[2025-05-20 19:54] VITALS: BP 149/93; PULSE 98; RESP 20; TEMP 36.2; O2SAT 99; BMI 36.6
[2025-05-20 20:07] LABS: MANUAL DIFF FLAG NO
[2025-05-20 20:08] LABS: Hematocrit 41.8 % (42.0-52.0); Hemoglobin 15.0 g/dl (14.0-18.0); Imm Gran Abs Auto 0.02 X10*3/uL (0.00-0.03); Imm Gran Pct Auto 0.2 % (0.0-0.4); Lymphocytes Absolute Auto 4.4 X10*3/uL (1.2-4.9); Mean Corpuscular HGB Conc 35.9 g/dl (31.0-36.0); Mean Corpuscular Hemoglobin 29.8 pg (27.0-33.0); Mean Corpuscular Volume 83.1 fL (80.0-98.0); NRBC Abs Auto 0.000 X10*3/uL (0.0-0.012); NRBC Pct Auto 0.0 /100WBC (0.0-0.2); Platelet Count 276 X10*3/uL (160-400); Red Blood Count 5.03 X10*6/uL (4.60-5.80); White Blood Count 10.5 X10*3/uL (4.8-10.8)
[2025-05-20 20:22] LABS: Alanine Aminotransferase 81 U/L (0-40); Albumin Level 5.0 g/dL (3.5-5.0); Alkaline Phosphatase 53 U/L (39-117); Anion Gap 13 (12-20); Aspartate Amino Transferase 38 U/L (5-37); Blood Urea Nitrogen 11 mg/dL (9-16); Calcium 9.2 mg/dL (8.4-10.2); Carbon Dioxide 27 mmol/L (22-29); Chloride 104 mmol/L (96-108); Creatinine Clr Calc Pharmacy 126.6; Estimated Glomerular Filt Rate > 60; Magnesium 2.5 mg/dL (1.6-2.6); Potassium 3.9 mmol/L (3.3-5.1); Sodium 140 mmol/L (135-145); Total Protein 8.0 g/dL (6.5-8.0)
[2025-05-20 20:33] VITALS: BP 162/95; PULSE 87; RESP 18; TEMP 36.3; O2SAT 98
--- NOTE | 2025-05-20 20:48 | PC.NURSE ---
pt a&ox4, respirations even and unlabored. pt reports being diagnosed with sinus infection, reports he has been on medications but reports today he reports he sniffled hard and states his eyes went black and now he has been unable to see clear, reports he can see but it is blurry. pt taken to cta immediately, and placed into room. pt nsr on tele 89-95bpm
[2025-05-20] MEDS: iohexoL 350 MG/ML 100 ML INFUS..BTL 70 ML IV (21:24)
--- NOTE | 2025-05-20 21:46 | ECG_ITS ---
Test Reason : DIZZINESS Blood Pressure : */* mmHG Vent. Rate : 95 BPM Atrial Rate : 95 BPM P-R Int : 154 ms QRS Dur : 84 ms QT Int : 350 ms P-R-T Axes : 48 42 0 degrees QTcB Int : 439 ms Normal sinus rhythm Nonspecific T wave abnormality Abnormal ECG No previous ECGs available Referred By: Moo Trevizo Electronically Signed By: SUSANNA MUKHERJEE MD
[2025-05-20 22:38] LABS: Resp Syncy Virus RNA Qual PCR NEGATIVE (Negative); SARS COV2 PCR INHOUSE NEGATIVE (Negative)
[2025-05-20] MEDS: Oxymetazoline HCl 0.05 % Nasal 15 ML SPRAY 2 SPRAY NOSTRIL-B (22:55)
--- NOTE | 2025-05-20 22:55 | PC.NURSE ---
nasal spray pulled from pyxis by this rn, spray handed to provider and administered by provider
[2025-05-20 23:16] VITALS: BP 132/78; PULSE 78; RESP 15; TEMP 37.1; O2SAT 99
== END 2025-05-20 23:16 | disposition home or self-care (01) ==
PROVIDERS: Physician Assistant Medical; Emergency Provider Emergency Medicine
DX: R09.81 Nasal congestion (principal); H53.149 Visual discomfort, unspecified; I10 Essential (primary) hypertension; Z03.818 Encounter for observation for suspected exposure to other biological agents ruled out
CPT/HCPCS: 36415; 70496; 70498; 80053; 83735; 85025; 85652; 86140; 87637; 93005; 96361; 96374; 96375; 99285; J1100; J1200; J1308; J1885; J2765; Q9967

== ENCOUNTER → 2025-05-20 20:09 | Outpatient (BNV) | payer OTHER, SELFPAY | PROVIDERS: Emergency Provider Emergency Medicine; Visit Provider Radiology Diagnostic Radiology | DX: H53.9 Unspecified visual disturbance (principal) | CPT/HCPCS: 70496; 70498 ==

== ENCOUNTER → 2025-05-20 21:46 | Outpatient (BNV) | payer OTHER, SELFPAY | PROVIDERS: Emergency Provider Emergency Medicine; Visit Provider Internal Medicine Cardiovascular Disease | DX: R94.31 Abnormal electrocardiogram [ECG] [EKG] (principal); R42 Dizziness and giddiness | CPT/HCPCS: 93010 ==